=== PATIENT | male | born 1970 | race Caucasian/White ===

== ENCOUNTER → 2020-04-19 | Outpatient (CLI) | payer BC ==
[~2020-04-19] MED LIST: AMBIEN 10 MG TA10 MG PO; CELEBREX 200 M200 MG PO; NABUMETONE 750750 M1 PO; NEURONTIN 300300 M1 PO; RELAFEN750 MG PO
== END ==
LOC: LAB 15:22
PROVIDERS: ATTEND Anesthesiology
DX: Z01.812 Encounter for preprocedural laboratory examination (principal); Z20.828 Contact with and (suspected) exposure to other viral communicable diseases